=== PATIENT | female | born 1960 | race Caucasian/White ===

== ENCOUNTER 2017-02-04 07:27 | Day surgery (SDC) | payer OTHER ==
[2017-02-02 19:37] VITALS: BMI 37.9
[~2017-02-04 07:27] MED LIST: BUPIVACAINE HCL/PF 0.5% (5MG/ML) 10 ML VIAL IJ ONE
[2017-02-04 07:51] LABS: URINE APPEARANCE SLCLOUDY; URINE BILIRUBIN NEGATIVE (NEGATIVE); URINE BLOOD NEGATIVE (NEGATIVE); URINE COLOR YELLOW; URINE GLUCOSE (UA) NEGATIVE (NEGATIVE); URINE KETONE NEGATIVE (NEGATIVE); URINE NITRITE NEGATIVE (NEGATIVE); URINE PROTEIN NEGATIVE (NEGATIVE); URINE UROBILINOGEN NEGATIVE mg/dL (0.2-1.0)
[2017-02-04] MEDS ORDERED: PROPOFOL 20 ML ONE (09:12)
[2017-02-04] MEDS ORDERED: SUCCINYLCHOLINE CHLORIDE 200 MG/10 ML VIAL ONE (09:12)
[2017-02-04] MEDS ORDERED: MIDAZOLAM HCL 2 MG/2 ML SINGLE DOSE VIAL ONE (09:12)
[2017-02-04] MEDS ORDERED: ceFAZolin SODIUM 1 GM VIAL IVPB ONE ×2 (09:31→09:40)
--- NOTE | 2017-02-04 09:33 | HP ---
Satellite [facility] - Chief Complaint Chief Complaint: right knee pain History of Present Illness: right knee pain, decreased ROM, difficulty ambulating History Source: Patient Limitations to Obtaining History: No Limitations - Past Medical History Allergies/Adverse Reactions: Allergies Allergy/AdvReac Type Severity Reaction Status Date / Time shellfish derived Allergy Severe Swelling Verified 02/04/17 08:00 cyclobenzaprine HCl Allergy Intermediate Rash Verified 02/04/17 08:00 [From Flexeril] - Current Medications Current Medications: Home Medications Medication Instructions Recorded Ibuprofen [Motrin -] 800 mg PO QID 02/02/17 Nebivolol [Bystolic -] 5 mg PO DAILY 02/02/17 Satellite Physical Exam - Physical Examination Vital Signs: Vital Signs Period Temp Pulse Resp BP Sys/Sky Pulse Ox Last 24 Hr 98.2 F 76 20 148/87 100 General Appearance: Well Nourished ENT: Clear Lung: Clear to auscultation Heart: Regular rate & rhythm Breasts: Soft Abdomen: Soft Extremities: No edema Satellite Impression/Plan - Impression/Plan Impression: right knee pain, medial meniscus tear, OA Operative Procedure: right knee arthroscopy Date to be Performed: 02/04/17
[2017-02-04] MEDS ORDERED: SEVOFLURANE 250 ML BTL ONE (09:35)
[2017-02-04] MEDS ORDERED: DEXAMETHASONE SOD PHOSPHATE 4 MG/1 ML VIAL ONE (09:39)
[2017-02-04] MEDS ORDERED: ceFAZolin SODIUM 1 GM VIAL ONE ×2 (09:39→09:41)
[2017-02-04] MEDS ORDERED: BUPIVACAINE HCL/PF 0.5% (5MG/ML) 10 ML VIAL IJ ONE (10:10)
--- NOTE | 2017-02-04 10:16 | OP ---
Operative Note - Note: Operative Date: 02/04/17 Pre-Operative Diagnosis: right knee pain, MM tear, OA Operation: right knee arthroscopy, partial medial meniscectomy, debridement chondroplasty Findings: Grade IV OA Surgeon: Kevin Isaac Credit Cashier: Nikolay Barreto Anesthesiologist/BOILING OFF WINDER: Esperanza Sheets Anesthesia: General, Local Specimens Removed: shavings Estimated Blood Loss (mls): 0 Drains, Volume Out (mls): 0 Blood Volume Replaced (mls): 0 Fluid Volume Replaced (mls): 500 Operative Report Dictated: Yes
[2017-02-04] MEDS ORDERED: ONDANSETRON 4 MG/2 ML VIAL IVPUSH PRN (10:45)
[2017-02-04] MEDS ORDERED: LACTATED RINGERS SOLUTION 1,000 ML IV SCH (10:45)
[2017-02-04] MEDS ORDERED: oxyCODONE HCL 5 MG TABLET PO PRN (10:45)
--- NOTE | 2017-02-04 11:01 | OP ---
DATE OF OPERATION: 02/04/2017 PREOPERATIVE DIAGNOSES: Right knee pain, medial meniscus tear, and osteoarthritis. POSTOPERATIVE DIAGNOSES: Right knee pain, medial meniscus tear, and osteoarthritis. PROCEDURE: Right knee arthroscopy, partial medial meniscectomy, and debridement chondroplasty. SURGEON: Kevin Isaac MD ASSISTANTS: None. ANESTHESIOLOGIST: Esperanza Sheets MD ANESTHESIA: LMA anesthesia, local injection 20 mL 0.50% Marcaine. DRAINS: None. COMPLICATIONS: None. BLOOD LOSS: Minimal. SPECIMEN: Arthroscopic shavings. BLOOD GIVEN: None. FLUID REPLACEMENT: 500 mL Plasmalyte. INDICATION FOR PROCEDURE: This patient is a 56-year-old female with a preoperative diagnosis of right knee pain, a medial meniscus tear, and osteoarthritis. After understanding the potential risks, complications, alternatives, and benefits of surgery versus nonsurgical treatment, the patient elected to undergo this procedure. DESCRIPTION OF PROCEDURE: The patient was brought to the operating room, peripheral IV placed, and IV sedation given. One gram of IV Ancef was given. LMA anesthesia was induced. Ample Webril was placed on the right thigh. Tourniquet was applied. A Styrofoam ring was applied. She was placed in the C clamp leg rodgers with ample padding throughout. The right lower extremity was then prepped and draped in sterile fashion, elevated, exsanguinated with an Esmarch bandage and tourniquet inflated to 250 mmHg. A superior medial outflow portal was established. A lateral portal was established, and the arthroscope was introduced into the joint under direct visualization. A medial portal was established with a spinal needle. Probe was introduced. Patient was seen to have a tear at the posterior horn of the medial meniscus and significant grade 4 osteoarthritis of the medial femoral condyle and grade 3/grade 4 changes of the medial tibial plateau. A partial medial meniscectomy and debridement chondroplasty were performed in the medial compartment. Photographs were taken. In the intracondylar notch, the patient had a lot of synovitis. This was removed. The lateral compartment looked good. The patient's lateral femoral condyle, lateral tibial plateau, and lateral meniscus all looked great. Next, we looked at the patellofemoral joint. The patient had significant grade 4 osteoarthritis of both the undersurface of the patella and the femoral trochlea. Debridement chondroplasty was performed in this compartment as well, as well as a small partial synovectomy. The area was copiously irrigated and washed out. Photographs taken. All instrumentation removed. Excess saline removed. Arthroscopy portals closed with 3-0 nylon sutures. Next, 20 mL of 0.5% Marcaine introduced into the joint. The area was washed, dried, covered with Xeroform, 4 x 4 gauze, Webril, and a 6-inch Satish bandage was applied. Tourniquet was taken down after total tourniquet time of 18 minutes. There were no complications during the case. The patient tolerated the procedure quite well, was brought to the ambulatory recovery room in stable condition. Brandee [id number]
[2017-02-04 11:04] VITALS: TEMP 97.6
[2017-02-04] MEDS ORDERED: oxyCODONE HCL 5 MG TABLET ONE (11:41)
[2017-02-04 14:00] VITALS: BP 133/87; PULSE 66
[2017-02-04 17:10] LABS: URINE LEUK ESTERASE Negative (NEGATIVE)
--- NOTE | 2017-02-05 15:23 | PATH ---
Surgical Pathology Report Patient Name: JEREMIAH AYALA [facility]. Rec. #: [id number] /Age/Gender: 1960 (Age: 56) / F Account: [id number] Location: [facility] SURGICAL Taken: 02/04/2017 Received: 02/04/2017 Reported: 02/05/2017 Physicians: Kevin Isaac M.D. Specimen(s) Received SHAVINGS, RIGHT KNEE Clinical History Right medial meniscal tear, osteoarthritis Final Diagnosis KNEE, RIGHT, ARTHROSCOPIC SHAVING: FIBROCARTILAGE WITH MYXOID DEGENERATIVE CHANGES, ALONG WITH PORTIONS OF SYNOVIUM AND HYALINE CARTILAGE. Electronically Signed Kevyn Mendieta M.D. Gross Description Received in formalin, labeled "shavings right knee," is a 4.2 x 3.1 x 0.4 cm. aggregate of raymond-yellow soft tissue fragments. A inside sales representative portion is submitted in one cassette. 02/04/201702/04/2017
== END 2017-02-04 14:28 | disposition home or self-care (01) ==
LOC: JASU-SURG 07:27
PROVIDERS: ATTEND Orthopaedic Surgery
PROC: 0SBC4ZZ Excision of Right Knee Joint, Percutaneous Endoscopic Approach (ICD-10-PCS; principal; 2017-02-04 09:00)
DX: S83.241A Other tear of medial meniscus, current injury, right knee, initial encounter (principal); X58.XXXA Exposure to other specified factors, initial encounter; Y93.9 Activity, unspecified; Y92.89 Other specified places as the place of occurrence of the external cause; Y99.9 Unspecified external cause status
CPT/HCPCS: 81003; 88304-TC; 94760